=== PATIENT | female | born 1945 | race American Indian/Alaskan Native ===

== ENCOUNTER 2019-09-17 22:12 | Emergency (ER) | payer MEDICARE ==
--- NOTE | 2019-09-17 22:44 | Event Note ---
ED Screening Note Date of service: 09/17/19 Time: 22:43 ED Screening Note: Fell of the bath tub today cc of left sided rid/side/back pain This initial assessment/diagnostic orders/clinical plan/treatment(s) is/are subject to change based on patients health status, clinical progression and re- assessment by fellow clinical providers in the ED. Further treatment and workup at subsequent clinical providers discretion. Patient/guardian urged not to elope from the ED as their condition may be serious if not clinically assessed and managed. Initial orders include: xr rib main side eval
--- NOTE | 2019-09-17 23:39 | XRay Report ---
BILATERAL RIBS 4 VIEWS INDICATION / CLINICAL INFORMATION: fall/pain. COMPARISON: 11/08/2014 chest radiograph FINDINGS: RIBS: No acute, displaced fracture or other acute abnormality. LUNGS: No acute airspace disease, pleural fluid or pneumothorax. Hyperinflated lungs with flattened d iaphragm suggesting underlying emphysema. Normal heart size. Signer Name: Trent Osuna MD Signed: 09/17/2019 11:34 PM Workstation Name: [id number]
[2019-09-18] MEDS ORDERED: HYDROcodone/ACETAMINOPHEN 5-325 MG TAB PO ONE (00:44)
[2019-09-18 00:46] VITALS: BP 130/71
--- NOTE | 2019-09-18 00:50 | Emergency Department Report ---
ED Fall HPI - General Chief Complaint: Fall Stated Complaint: FELL, SIDE PAIN Time Seen by Provider: 09/18/19 00:35 Source: patient, family Mode of arrival: Ambulatory - History of Present Illness Initial Comments: Patient is a 74-year-old female with past medical history of COPD who suffered a fall today at home. Patient states because of the whether she lost power in her home while in the bathroom. Patient states while trying to get out of the bathroom she fell between the toe and the commode. Patient struck her left chest on the bathtub. Patient has 10 out of 10 pain. Pain is worse with deep breathing and with movement. Patient denies head injury. Patient states she does have some mild shortness of breath. - Related Data Previous Rx's Medication Instructions Recorded Last Taken Type ALBUTEROL Inhaler (OR & NICU) 2 puff IH QID PRN #1 inhalation 11/09/14 Unknown Rx [Proair] HYDROcodone/APAP 5-325 [[place] 1 each PO Q6HR PRN #14 tablet 09/18/19 Unknown Rx 5/325] Allergies Allergy/AdvReac Type Severity Reaction Status Date / Time No Known Allergies Allergy Verified 11/08/14 14:56 ED Review of Systems ROS: Stated complaint: FELL, SIDE PAIN Other details as noted in HPI Comment: All other systems reviewed and negative ED Past Medical Hx - Past Medical History Previous Medical History?: Yes Hx Asthma: Yes Additional medical history: bronchitis - Surgical History Past Surgical History?: Yes Additional Surgical History: TUBAL LIGATION - Social History Smoking Status: Current Every Day Smoker Substance Use Type: None - Medications Home Medications: Home Medications Medication Instructions Recorded Confirmed Last Taken Type ALBUTEROL Inhaler (OR & NICU) 2 puff IH QID PRN #1 inhalation 11/09/14 04/29/15 Unknown Rx [Proair] HYDROcodone/APAP 5-325 [[place] 1 each PO Q6HR PRN #14 tablet 09/18/19 Unknown Rx 5/325] ED Physical Exam - General Limitations: Physical Limitation General appearance: alert, in distress (secondary to pain) - Head Head exam: Present: atraumatic, normocephalic - Eye Eye exam: Present: normal appearance - ENT ENT exam: Present: mucous membranes moist - Neck Neck exam: Present: normal inspection - Respiratory Respiratory exam: Present: normal lung sounds bilaterally, chest wall tenderness (left lower rib pain laterally). Absent: respiratory distress, wheezes, rales, rhonchi - Cardiovascular Cardiovascular Exam: Present: normal rhythm, tachycardia (mild), normal heart sounds. Absent: systolic murmur, diastolic murmur, rubs, gallop - GI/Abdominal GI/Abdominal exam: Present: soft, normal bowel sounds. Absent: distended, tenderness - Extremities Exam Extremities exam: Present: normal inspection - Back Exam Back exam: Present: normal inspection - Neurological Exam Neurological exam: Present: alert, oriented X3 - Psychiatric Psychiatric exam: Present: normal affect, normal mood - Skin Skin exam: Present: warm, dry, intact, normal color. Absent: rash ED Course Vital Signs 09/17/19 22:39 Temperature 98.7 F Pulse Rate 107 H Respiratory 18 Rate Blood Pressure 99/57 O2 Sat by Pulse 93 Oximetry ED Medical Decision Making - Radiology Data Patient: BRINA GAONA MR#: [id number] : 1945 Acct:[id number] Age/Sex: 74 / F ADM Date: 09/17/19 Loc: ED Attending Dr: Ordering Physician: KELLI GUAMAN Date of Service: 09/17/19 Procedure(s): XR ribs BILAT w/PA chest 4+V Accession Number(s): [id number] cc: KELLI GUAMAN Fluoro Time In Minutes: BILATERAL RIBS 4 VIEWS INDICATION / CLINICAL INFORMATION: fall/pain. COMPARISON: 11/08/2014 chest radiograph FINDINGS: RIBS: No acute, displaced fracture or other acute abnormality. LUNGS: No acute airspace disease, pleural fluid or pneumothorax. Hyperinflated lungs with flattened diaphragm suggesting underlying emphysema. Normal heart size. Signer Name: Trent Osuna MD Signed: 09/17/2019 11:34 PM Workstation Name: [id number] Transcribed By: DMB Dictated By: Trent Osuna MD Electronically Authenticated By: Trent Osuna MD Signed Date/Time: 09/17/19 2334 - Medical Decision Making No obvious displaced rib fracture was seen on x-ray. Patient be given incentive spirometer and also medication for symptomatic relief and should be discharged home. Critical care attestation.: If time is entered above; I have spent that time in minutes in the direct care of this critically ill patient, excluding procedure time. ED Disposition Clinical Impression: Rib contusion Qualifiers: Encounter type: initial encounter Laterality: left Qualified Code(s): S20.212A - Contusion of left front wall of thorax, initial encounter Disposition: DC-01 TO HOME OR SELFCARE Is pt being admited?: No Does the pt Need Aspirin: No Condition: Stable Instructions: Rib Fracture (ED) Additional Instructions: Information for rib fractures has been given. The treatment for rib contusions and rib fractures on the same. Time of Disposition: 00:49
== END 2019-09-18 01:25 | disposition home or self-care (01) ==
LOC: ED 22:12
DX: S20.212A Contusion of left front wall of thorax, initial encounter (principal); W18.30XA Fall on same level, unspecified, initial encounter; Y93.89 Activity, other specified; Y92.89 Other specified places as the place of occurrence of the external cause; Y99.8 Other external cause status
CPT/HCPCS: 71111; 99283